=== PATIENT | male | born 1995 | race Caucasian/White ===

== ENCOUNTER 2019-07-18 01:24 | Emergency (ER) | payer SELFPAY ==
--- NOTE | 2019-07-18 02:52 | ED ---
Upper Extremity Pain - HPI Summary HPI Summary: Pt is a 24 y/o M presenting to the ED with a chief complaint of R shoulder pain. He states he believes he dislocated it when he fell down some steps tonight onto the shoulder, as he has a prior dislocation of that shoulder. He reports decreased ROM of shoulder, and EtOH use tonight. He denies any tingling/ numbness to the area or anywhere beyond that. Pt's R-handed. - History of Current Complaint Chief Complaint: EDShoulderClavicleInj Stated Complaint: SHOULDER INJURY PER PT Time Seen by Provider: 07/18/19 02:35 Hx Obtained From: Patient Mechanism Of Injury: Fall From A Standing Position Onset/Duration: Started Hours Ago, Still Present Timing: Constant, Lasting Hours Severity Initially: Moderate Severity Currently: Moderate Pain Location: Shoulder - right Aggravating Factor(s): Movement Alleviating Factor(s): Nothing Associated Signs & Symptoms: Negative: Numbness/Tingling - Allergies/Home Medications Allergies/Adverse Reactions: Allergies Allergy/AdvReac Type Severity Reaction Status Date / Time No Known Allergies Allergy Verified 07/18/19 01:32 PMH/Surg Hx/FS Hx/Imm Hx Previously Healthy: Yes Endocrine/Hematology History: Denies: Hx Diabetes Respiratory History: Reports: Hx Asthma - USES AN INHALER Sensory History: Denies: Hx Contacts or Glasses, Hx Hearing Aid Opthamlomology History: Denies: Hx Contacts or Glasses - Surgical History Surgery Procedure, Year, and Place: LEFT ANKLE X2: 2011, 2012 [facility] Hx Anesthesia Reactions: No Infectious Disease History: No Infectious Disease History: Denies: Traveled Outside the [place] in Last 30 Days - Family History Known Family History: Negative: Diabetes - Social History Alcohol Use: Occasionally Hx Substance Use: Yes Substance Use Type: Reports: Prescribed Hx Tobacco Use: Yes Smoking Status (MU): Light Every Day Tobacco Smoker Review of Systems - ROS Summary Review of Systems Summary: Home Medications Medication Instructions Recorded Confirmed Type Adderall PO DAILY 10/03/12 06/24/15 History Albuterol HFA INHALER* [Ventolin INH Q6HR PRN 10/03/12 06/24/15 History HFA Inhaler*] Ibuprofen TAB* [Motrin TAB*] PO Q6HR PRN 10/03/12 06/24/15 History Fluticasone-Salmeterol 250-50* 1 puff INH 06/24/15 06/24/15 History [Advair Diskus 250-50*] Naproxen 1 tab PO PRN 06/24/15 06/24/15 History Positive: Arthralgia, Decreased ROM Negative: Paresthesia, Numbness All Other Systems Reviewed And Are Negative: Yes Physical Exam - Summary Physical Exam Summary: General: Obese male. Mild discomfort. HEENT: Normocephalic, Atraumatic. Eyes: Conjuctiva normal, PERRL. Oropharynx: Clear, mucous membranes moist, (-) exudates. Neck: Soft, FROM, (-) lymphadenopathy, (-) thyromegaly, (-) JVD. Cardiovascular: Normal sinus rhythm, (-) murmur. Lungs: Clear to auscultation bilaterally (-) wheezes, (-) rales, (-) rhonchi. Abdomen: Soft, non-tender, non-distended, (-) organomegaly, normal bowel sounds. Back: (-) CVA tenderness Extremities: No edema. Anterior shoulder is tender at AC joint. Decreased ROM of R shoulder. Nml strength, sensation intact, pulses, capillary refill intact. Skin: Warm, dry, (-) rash. Neuro: Alert and oriented x3, no focal deficits. Psychiatric: Mood normal, affect normal. Triage Information Reviewed: Yes Vital Signs On Initial Exam: Initial Vitals Temp Pulse Resp BP Pulse Ox 97.5 F 112 16 158/99 93 07/18/19 01:25 07/18/19 01:25 07/18/19 01:25 07/18/19 01:25 07/18/19 01:25 Vital Signs Reviewed: Yes Procedures - Sedation Patient Received Moderate/Deep Sedation with Procedure: No Diagnostics - Vital Signs Vital Signs Temp Pulse Resp BP Pulse Ox 07/18/19 01:25 97.5 F 112 16 158/99 93 - Laboratory Lab Statement: Any lab studies that have been ordered have been reviewed, and results considered in the medical decision making process. - Radiology Shoulder XR Radiology Interpretation Completed By: ED Physician Summary of Radiographic Findings: Acromioclavicular separation. Pending official radiology report. Course/Dx - Course Course Of Treatment: Fell downstairs. Alcohol involved. Tenderness of shoulder. NV intact. XR shows AC joint separation. Placed in sling. Recommended ice & anti -inflammatory. Off work today. - Diagnoses Provider Diagnoses: Acromioclavicular joint separation Discharge ED - Sign-Out/Discharge Documenting (check all that apply): Patient Departure - Discharge Plan Condition: Stable Disposition: HOME Patient Education Materials: Acromioclavicular Separation (ED), How to Use a Sling (ED) Forms: *Work Release Referrals: [facility] [Outside] Allen Worlye MD [Medical Doctor] - Additional Instructions: Please follow up with your primary care physician within three days. Please return to ED for any new or worsening symptoms. - Billing Disposition and Condition Condition: STABLE Disposition: Home - Attestation Statements Document Initiated by Scribe: Yes Documenting Scribe: Yadira Hernandez Provider For Whom Mukesh is Documenting (Include Credential): Ariana Arriaza MD. Scribe Attestation: Yadira Robert, scribed for Ariana Arriaza MD. on 07/18/19 at 0602. Scribe Documentation Reviewed: Yes Provider Attestation: The documentation as recorded by the scribeYadira accurately reflects the service I personally performed and the decisions made by Ariana carlisle MD. Status of Scribe Document: Viewed
[2019-07-18] MEDS ORDERED: Naproxen TAB* 250 MG PO ONE (03:19)
[2019-07-18 03:44] VITALS: BP 141/90
== END 2019-07-18 03:45 | disposition home or self-care (01) ==
LOC: ED 01:24
DX: S43.101A Unspecified dislocation of right acromioclavicular joint, initial encounter (principal); W10.9XXA Fall (on) (from) unspecified stairs and steps, initial encounter; Y92.9 Unspecified place or not applicable; F17.200 Nicotine dependence, unspecified, uncomplicated; Z79.899 Other long term (current) drug therapy
CPT/HCPCS: 99282

== ENCOUNTER 2019-12-03 16:06 | Emergency (ER) | payer SELFPAY ==
[2019-12-03 16:54] VITALS: BP 172/82
== END 2019-12-03 17:11 | disposition home or self-care (01) ==
LOC: UCEAST 16:06

== ENCOUNTER 2021-12-08 15:12 | Inpatient (IN) ==
[2021-12-08 17:37] LABS: ABS Basophils 0.1 10^3/ul (0-0.2); ABS Eosinophils 0.2 10^3/ul (0-0.6); ABS Lymphocytes 1.5 10^3/ul (1.0-4.8); ABS Neutrophils 10.4 10^3/ul (1.5-7.7); Eosinophil % 1.3 %; Hematocrit 50 % (42-52); Hemoglobin 16.7 g/dL (14.0-18.0); Lymphocyte % 11.1 %; Mean Corpuscular HGB Conc 34 g/dL (31-36); Mean Corpuscular Hemoglobin 33 pg (27-31); Mean Corpuscular Volume 99 fL (80-94); Mean Platelet Volume 6.7 fL (7.4-10.4); Nucleated Red Blood Cells % 0.2; Platelet Count 218 10^3/uL (150-450); Red Cell Distribution Width 13 % (10-15); White Blood Count 13.1 10^3/uL (3.5-10.8)
[2021-12-08 18:23] LABS: Albumin 4.3 g/dL (3.2-5.2); Potassium 4.6 mmol/L (3.5-5.0); Total Protein 7.3 g/dL (6.4-8.9); eGFR CKD-EPI 129.5 (>60)
[2021-12-08 18:24] LABS: Albumin/Globulin Ratio 1.4 (1-3); C Reactive Protein 11.89 mg/L (<8.01); Total Bilirubin 0.8 mg/dL (0.2-1.0)
[2021-12-08] MEDS ORDERED: Lactated Ringers 1000 ml BAG 1,000 ML IV ONE (20:01)
[2021-12-08] MEDS ORDERED: Droperidol 5 MG/2 ML 2 ML VIAL IV ONE (20:01)
[2021-12-08] MEDS ORDERED: Iohexol 350 (CONTRAST) 500 ML MDV IV ONE (20:31)
[2021-12-08 20:59] LABS: INR 1.12 (0.86-1.15)
[2021-12-08] MEDS ORDERED: Acyclovir IV 1,000 MG in NS 0.9% 250 ml 250 ML IVPB ONE (21:00)
[2021-12-08] MEDS ORDERED: Ondansetron 4 mg VIAL 2 MG/ML 2 ml VIAL IV PRN (21:18)
[2021-12-08] MEDS ORDERED: Lorazepam PYXIS KEY PRN (21:25)
[2021-12-08] MEDS ORDERED: Lactated Ringers 1000 ml BAG 1,000 ML IV SCH (23:45)
[2021-12-08] MEDS: cefTRIAXone 2 gm/50 mL D5W 2 GM/50 ML BAG IV SCH (23:48)
[2021-12-09] MEDS: Lactated Ringers 1000 ml BAG 1,000 ML IV SCH ×2 (01:08→11:08)
[2021-12-09] MEDS: Acyclovir IV 1,000 MG in NS 0.9% 250 ml 250 ML IVPB SCH ×3 (05:50→21:12)
[2021-12-09 07:07] LABS: ABS Basophils 0.1 10^3/ul (0-0.2); ABS Eosinophils 0.2 10^3/ul (0-0.6); ABS Lymphocytes 1.5 10^3/ul (1.0-4.8); ABS Monocytes 0.8 10^3/ul (0-0.8); ABS Neutrophils 7.8 10^3/ul (1.5-7.7); Eosinophil % 1.5 %; Hematocrit 45 % (42-52); Hemoglobin 15.7 g/dL (14.0-18.0); Lymphocyte % 14.7 %; Mean Corpuscular HGB Conc 35 g/dL (31-36); Mean Corpuscular Hemoglobin 34 pg (27-31); Mean Corpuscular Volume 98 fL (80-94); Mean Platelet Volume 6.8 fL (7.4-10.4); Nucleated Red Blood Cells % 0.2; Platelet Count 186 10^3/uL (150-450); Red Cell Distribution Width 13 % (10-15); White Blood Count 10.3 10^3/uL (3.5-10.8)
[2021-12-09 07:13] LABS: Activated Partial Thrombo Time 37.5 seconds (26.0-38.0); INR 1.08 (0.86-1.15)
[2021-12-09 07:30] LABS: Albumin 3.9 g/dL (3.2-5.2); Albumin/Globulin Ratio 1.4 (1-3); Calcium 9.3 mg/dL (8.6-10.3); Globulin 2.7 g/dL (2-4); Potassium 4.3 mmol/L (3.5-5.0); Total Bilirubin 0.8 mg/dL (0.2-1.0); Total Protein 6.6 g/dL (6.4-8.9); eGFR CKD-EPI 129.5 (>60)
[2021-12-09] MEDS: Mometasone/Formoter 200/5 MDI INH SCH ×2 (07:34→20:38)
[2021-12-09] MEDS: Amphetamine MIXED SALT 10mgTAB PO SCH ×2 (11:06→14:13)
[2021-12-09] MEDS: Nicotine PATCH 7 MG/24 HR PATCH TRANSDERM SCH (11:08)
[2021-12-09] MEDS: cefTRIAXone 2 gm/50 mL D5W 2 GM/50 ML BAG IV SCH ×2 (11:15→20:04)
[2021-12-09 11:18] LABS: Body Fluid Source Cerebral Spinal
[2021-12-09 11:30] LABS: CSF Glucose 52 mg/dL (40-70)
[2021-12-09 11:58] LABS: Body Fluid Appearance Clear; Body Fluid Color Colorless; CSF Tube # 4
[2021-12-09 12:45] LABS: Body Fluid WBC 277 /mcL
[2021-12-09 12:47] LABS: HIV 4th Generation Nonreactive (Nonreactive)
[2021-12-09 12:47] LABS: Body Fluid Mono 10 %; Body Fluid Other Cells 1; Body Fluid Total Cells Counted 200
[2021-12-09] MEDS: Enoxaparin 40 MG/0.4 ML SYR SUBCUT SCH (14:17)
[2021-12-09] MEDS: LORazepam 2 mg VIAL 1 ml IV PUSH PRN (16:13)
[2021-12-09] MEDS ORDERED: Gadoteridol (CONTRAST) 279.3 MG/ML 10 ML IV ONE (18:54)
[2021-12-10] MEDS: LORazepam 2 mg VIAL 1 ml IV PUSH PRN (01:29)
[2021-12-10] MEDS: Acyclovir IV 1,000 MG in NS 0.9% 250 ml 250 ML IVPB SCH ×3 (05:17→21:40)
[2021-12-10 08:53] LABS: ABS Eosinophils 0.2 10^3/ul (0-0.6); ABS Lymphocytes 1.4 10^3/ul (1.0-4.8); ABS Monocytes 0.7 10^3/ul (0-0.8); ABS Neutrophils 5.3 10^3/ul (1.5-7.7); Eosinophil % 2.5 %; Hematocrit 43 % (42-52); Hemoglobin 14.4 g/dL (14.0-18.0); Lymphocyte % 17.9 %; Mean Corpuscular HGB Conc 34 g/dL (31-36); Mean Corpuscular Hemoglobin 34 pg (27-31); Mean Corpuscular Volume 99 fL (80-94); Mean Platelet Volume 6.6 fL (7.4-10.4); Platelet Count 180 10^3/uL (150-450); Red Blood Count 4.29 10^6 /uL (4.18-5.48); Red Cell Distribution Width 12 % (10-15); White Blood Count 7.6 10^3/uL (3.5-10.8)
[2021-12-10] MEDS: Mometasone/Formoter 200/5 MDI INH SCH ×2 (09:03→21:24)
[2021-12-10 10:00] LABS: Albumin 3.9 g/dL (3.2-5.2); Albumin/Globulin Ratio 1.7 (1-3); Calcium 9.4 mg/dL (8.6-10.3); Globulin 2.3 g/dL (2-4); Potassium 4.8 mmol/L (3.5-5.0); Total Bilirubin 0.7 mg/dL (0.2-1.0); Total Protein 6.2 g/dL (6.4-8.9); eGFR CKD-EPI 124.6 (>60)
[2021-12-10] MEDS: cefTRIAXone 2 gm/50 mL D5W 2 GM/50 ML BAG IV SCH (10:07)
[2021-12-10] MEDS: Nicotine PATCH 7 MG/24 HR PATCH TRANSDERM SCH ×2 (10:08→12:00)
[2021-12-10] MEDS: Amphetamine MIXED SALT 10mgTAB PO SCH ×2 (10:08→14:32)
[2021-12-10] MEDS: Enoxaparin 40 MG/0.4 ML SYR SUBCUT SCH (13:23)
[2021-12-11 01:59] LABS: HSV 1 PCR, CSF Negative (Negative); HSV 2 PCR, CSF Negative (Negative)
[2021-12-11] MEDS: Acyclovir IV 1,000 MG in NS 0.9% 250 ml 250 ML IVPB SCH ×3 (04:47→21:24)
[2021-12-11] MEDS: Amphetamine MIXED SALT 10mgTAB PO SCH ×2 (05:05→12:09)
[2021-12-11 05:09] LABS: ABS Basophils 0.1 10^3/ul (0-0.2); ABS Eosinophils 0.2 10^3/ul (0-0.6); ABS Lymphocytes 1.5 10^3/ul (1.0-4.8); ABS Monocytes 0.8 10^3/ul (0-0.8); ABS Neutrophils 5.7 10^3/ul (1.5-7.7); Eosinophil % 2.5 %; Hematocrit 41 % (42-52); Hemoglobin 14.2 g/dL (14.0-18.0); Lymphocyte % 18.3 %; Mean Corpuscular HGB Conc 35 g/dL (31-36); Mean Corpuscular Hemoglobin 34 pg (27-31); Mean Corpuscular Volume 99 fL (80-94); Mean Platelet Volume 6.7 fL (7.4-10.4); Platelet Count 169 10^3/uL (150-450); Red Blood Count 4.17 10^6 /uL (4.18-5.48); Red Cell Distribution Width 12 % (10-15); White Blood Count 8.3 10^3/uL (3.5-10.8)
[2021-12-11 05:37] LABS: Albumin 3.5 g/dL (3.2-5.2); Albumin/Globulin Ratio 1.5 (1-3); Calcium 8.8 mg/dL (8.6-10.3); Globulin 2.4 g/dL (2-4); Potassium 3.8 mmol/L (3.5-5.0); Total Bilirubin 0.7 mg/dL (0.2-1.0); Total Protein 5.9 g/dL (6.4-8.9); eGFR CKD-EPI 126.9 (>60)
[2021-12-11] MEDS: Mometasone/Formoter 200/5 MDI INH SCH ×2 (08:21→20:00)
[2021-12-11] MEDS: Nicotine PATCH 7 MG/24 HR PATCH TRANSDERM SCH (12:04)
[2021-12-11] MEDS: Enoxaparin 40 MG/0.4 ML SYR SUBCUT SCH (12:04)
[2021-12-11 16:40] LABS: CSF VDRL Negative (Negative)
[2021-12-11 21:33] LABS: Varicella Zoster Result Positive (Negative); Varicella Zoster Source CSF
[2021-12-12] MEDS: Albuterol HFA INHALER 8 gm MDI INH PRN (02:34)
[2021-12-12] MEDS: Amphetamine MIXED SALT 10mgTAB PO SCH ×2 (05:03→12:27)
[2021-12-12] MEDS: Acyclovir IV 1,000 MG in NS 0.9% 250 ml 250 ML IVPB SCH ×3 (05:10→21:03)
[2021-12-12 05:31] LABS: ABS Basophils 0.1 10^3/ul (0-0.2); ABS Eosinophils 0.2 10^3/ul (0-0.6); ABS Lymphocytes 1.6 10^3/ul (1.0-4.8); ABS Monocytes 0.7 10^3/ul (0-0.8); Eosinophil % 2.8 %; Hematocrit 40 % (42-52); Hemoglobin 13.7 g/dL (14.0-18.0); Lymphocyte % 21.3 %; Mean Corpuscular HGB Conc 34 g/dL (31-36); Mean Corpuscular Hemoglobin 34 pg (27-31); Mean Corpuscular Volume 100 fL (80-94); Mean Platelet Volume 6.5 fL (7.4-10.4); Platelet Count 167 10^3/uL (150-450); Red Blood Count 4.05 10^6 /uL (4.18-5.48); Red Cell Distribution Width 12 % (10-15); White Blood Count 7.7 10^3/uL (3.5-10.8)
[2021-12-12 06:09] LABS: Albumin 3.5 g/dL (3.2-5.2); Albumin/Globulin Ratio 1.5 (1-3); Calcium 8.9 mg/dL (8.6-10.3); Globulin 2.3 g/dL (2-4); Potassium 4.4 mmol/L (3.5-5.0); Total Bilirubin 0.8 mg/dL (0.2-1.0); Total Protein 5.8 g/dL (6.4-8.9); eGFR CKD-EPI 127.4 (>60)
[2021-12-12] MEDS: Mometasone/Formoter 200/5 MDI INH SCH ×4 (07:42→20:47)
[2021-12-12] MEDS: Enoxaparin 40 MG/0.4 ML SYR SUBCUT SCH (11:38)
[2021-12-12] MEDS: Nicotine PATCH 7 MG/24 HR PATCH TRANSDERM SCH ×2 (11:39→17:25)
[2021-12-12 15:32] LABS: B. garinii/B. afzellii PCR Negative (Negative); Lyme Disease Source CSF
[2021-12-13] MEDS: Acyclovir IV 1,000 MG in NS 0.9% 250 ml 250 ML IVPB SCH ×3 (04:35→22:04)
[2021-12-13 05:37] LABS: Calcium 8.8 mg/dL (8.6-10.3); Potassium 4.2 mmol/L (3.5-5.0); eGFR CKD-EPI 132.9 (>60)
[2021-12-13] MEDS: Amphetamine MIXED SALT 10mgTAB PO SCH ×2 (06:16→13:52)
[2021-12-13] MEDS: Mometasone/Formoter 200/5 MDI INH SCH ×2 (08:07→19:57)
[2021-12-13] MEDS: Nicotine PATCH 7 MG/24 HR PATCH TRANSDERM SCH ×2 (10:45→14:52)
[2021-12-13] MEDS: Enoxaparin 40 MG/0.4 ML SYR SUBCUT SCH (12:09)
[2021-12-13 17:15] LABS: CSF West Nile Virus IgG Ab Negative (Negative); CSF West Nile Virus IgM Ab Negative (Negative)
[2021-12-13] MEDS: Albuterol HFA INHALER 8 gm MDI INH PRN (19:59)
[2021-12-14] MEDS: Acyclovir IV 1,000 MG in NS 0.9% 250 ml 250 ML IVPB SCH ×2 (05:14→12:46)
[2021-12-14] MEDS: Amphetamine MIXED SALT 10mgTAB PO SCH (07:11)
[2021-12-14 07:13] VITALS: BP 156/105
[2021-12-14] MEDS: Nicotine PATCH 7 MG/24 HR PATCH TRANSDERM SCH (07:19)
[2021-12-14] MEDS: Mometasone/Formoter 200/5 MDI INH SCH (07:43)
[2021-12-14] MEDS: Enoxaparin 40 MG/0.4 ML SYR SUBCUT SCH (12:47)
== END 2021-12-14 14:00 | disposition home health service (06) | DRG 720 ==
LOC: ED 15:12 → EDHOLD 21:18 → SUATTDRO 21:18 → MED 12-09 00:38
PROVIDERS: ADMIT Internal Medicine; ATTEND Internal Medicine

== ENCOUNTER 2022-04-14 14:42 | Inpatient (IN) ==
[2022-04-14 15:53] LABS: ABS Basophils 0.1 10^3/ul (0-0.2); ABS Eosinophils 0.1 10^3/ul (0-0.6); ABS Lymphocytes 1.3 10^3/ul (1.0-4.8); ABS Monocytes 0.8 10^3/ul (0-0.8); ABS Neutrophils 10.4 10^3/ul (1.5-7.7); Eosinophil % 0.9 %; Hematocrit 47 % (42-52); Hemoglobin 15.8 g/dL (14.0-18.0); Lymphocyte % 10.5 %; Mean Corpuscular HGB Conc 34 g/dL (31-36); Mean Corpuscular Hemoglobin 33 pg (27-31); Mean Corpuscular Volume 99 fL (80-94); Platelet Count 208 10^3/uL (150-450); Red Blood Count 4.77 10^6 /uL (4.18-5.48); Red Cell Distribution Width 13 % (10-15); White Blood Count 12.7 10^3/uL (3.5-10.8)
[2022-04-14 15:56] LABS: INR 1.03 (0.89-1.11)
[2022-04-14 16:34] LABS: Potassium 4.2 mmol/L (3.5-5.0)
[2022-04-14 16:35] LABS: Albumin 4.4 g/dL (3.2-5.2); Albumin/Globulin Ratio 1.6 (1-3); Calcium 9.7 mg/dL (8.6-10.3); Globulin 2.8 g/dL (2-4); Total Bilirubin 0.8 mg/dL (0.2-1.0); Total Protein 7.2 g/dL (6.4-8.9); eGFR CKD-EPI 133.3 (>60)
[2022-04-14] MEDS ORDERED: Benzocaine/Menthol LOZ PO ONE (16:37)
[2022-04-14] MEDS ORDERED: LORazepam 2 mg VIAL 1 ml IV PUSH ONE ×3 (16:51→18:56)
[2022-04-14] MEDS ORDERED: Lorazepam PYXIS KEY PRN ×3 (16:51→18:56)
[2022-04-14] MEDS ORDERED: Lidocaine 1% MPF 5 ML VIAL INJ ONE (16:51)
[2022-04-14] MEDS ORDERED: Lidocaine 2% PF 5 ML VIAL ONE (16:56)
[2022-04-14] MEDS ORDERED: Iohexol 350 (CONTRAST) 500 ML MDV IV ONE (16:59)
[2022-04-14] MEDS ORDERED: Albuterol 0.5% CONC CONTINUOUS NEB.SOL 5 mg/ml 20 ml BOT INH ONE (18:40)
[2022-04-14] MEDS ORDERED: Albuterol (2.5 MG) 0.5 % CONC 0.5 ML NEB.SOLN INH ONE (18:43)
[2022-04-14] MEDS ORDERED: Albuterol HFA INHALER 8 gm MDI INH PRN (19:43)
[2022-04-14 20:06] LABS: C Reactive Protein 25.79 mg/L (<8.01)
[2022-04-14] MEDS ORDERED: Piperacillin/Tazobac ADVAN 3.375 GM in NS 0.9% 100 ml BAG 100 ML IV ONE (20:45)
[2022-04-14] MEDS: methylPREDNISolone SOD SUCC 40 mg/ml 1 ml VIAL IV SCH (20:53)
[2022-04-14 21:00] LABS: TSH Ultra Thyroid Stim Horm 3.9 mcIU/mL (0.34-5.60)
[2022-04-14] MEDS ORDERED: Albuterol 2.5mg/3 ml (0.083%) NEB.SOLN INH SCH (21:00)
[2022-04-14] MEDS ORDERED: Zosyn per Pharmacy NOTE FOLLOW UP SCH (21:00)
[2022-04-14] MEDS ORDERED: Piperacillin/Tazobac 3.375 GM BAG ONE (21:49)
[2022-04-14 23:15] LABS: High Sensitivity Troponin 1 Hr 4 pg/mL (<20)
[2022-04-15] MEDS: Albuterol/Ipratropium NEB.SOL (2.5/0.5 MG) 3 ML NEB.SOLN INH PRN ×2 (00:18→06:45)
[2022-04-15] MEDS ORDERED: ZOSYN 3.375 GM Q8H per EXTENDED INFUSION IV SCH (03:30)
[2022-04-15] MEDS: methylPREDNISolone SOD SUCC 40 mg/ml 1 ml VIAL IV SCH ×3 (04:26→20:59)
[2022-04-15 06:08] LABS: ABS Lymphocytes 0.6 10^3/ul (1.0-4.8); ABS Monocytes 0.2 10^3/ul (0-0.8); ABS Neutrophils 12.3 10^3/ul (1.5-7.7); Hematocrit 44 % (42-52); Hemoglobin 15.1 g/dL (14.0-18.0); Lymphocyte % 4.3 %; Mean Corpuscular HGB Conc 34 g/dL (31-36); Mean Corpuscular Hemoglobin 34 pg (27-31); Mean Corpuscular Volume 98 fL (80-94); Mean Platelet Volume 6.8 fL (7.4-10.4); Platelet Count 206 10^3/uL (150-450); Red Blood Count 4.48 10^6 /uL (4.18-5.48); Red Cell Distribution Width 13 % (10-15); White Blood Count 13.1 10^3/uL (3.5-10.8)
[2022-04-15 06:52] LABS: Calcium 9.5 mg/dL (8.6-10.3); Potassium 4.8 mmol/L (3.5-5.0); eGFR CKD-EPI 130.9 (>60)
[2022-04-15] MEDS ORDERED: Benzocaine/Menthol LOZ PO PRN (07:08)
[2022-04-15] MEDS: Mometasone/Formoter 200/5 MDI INH SCH ×2 (09:19→21:05)
[2022-04-15] MEDS: Albuterol/Ipratropium NEB.SOL (2.5/0.5 MG) 3 ML NEB.SOLN INH SCH ×5 (10:05→23:16)
[2022-04-15 10:13] LABS: PCO2 Arterial 49 mmHg (35-45); PO2 Arterial 70 mmHg (80-100)
[2022-04-15] MEDS: Enoxaparin 40 MG/0.4 ML SYR SUBCUT SCH (11:09)
[2022-04-15] MEDS ORDERED: Magnesium Sulfate 2 gm BAG 2 GM/50 ML BAG IVPB ONE (11:12)
[2022-04-15] MEDS ORDERED: Perflutren Lipid Microsphere 3 ML VIAL ONE (15:45)
[2022-04-16] MEDS: Albuterol/Ipratropium NEB.SOL (2.5/0.5 MG) 3 ML NEB.SOLN INH SCH ×4 (03:32→15:32)
[2022-04-16] MEDS: methylPREDNISolone SOD SUCC 40 mg/ml 1 ml VIAL IV SCH ×2 (05:17→12:08)
[2022-04-16 06:44] LABS: ABS Lymphocytes 0.8 10^3/ul (1.0-4.8); ABS Monocytes 0.5 10^3/ul (0-0.8); ABS Neutrophils 16.6 10^3/ul (1.5-7.7); Hematocrit 44 % (42-52); Hemoglobin 15.1 g/dL (14.0-18.0); Lymphocyte % 4.5 %; Mean Corpuscular HGB Conc 35 g/dL (31-36); Mean Corpuscular Hemoglobin 35 pg (27-31); Mean Corpuscular Volume 101 fL (80-94); Mean Platelet Volume 6.9 fL (7.4-10.4); Platelet Count 208 10^3/uL (150-450); Red Blood Count 4.35 10^6 /uL (4.18-5.48); Red Cell Distribution Width 13 % (10-15); White Blood Count 17.9 10^3/uL (3.5-10.8)
[2022-04-16 06:57] LABS: Calcium 9.5 mg/dL (8.6-10.3); Magnesium 2.3 mg/dL (1.9-2.7); eGFR CKD-EPI 130.9 (>60)
[2022-04-16 07:06] LABS: Potassium 5.1 mmol/L (3.5-5.0)
[2022-04-16] MEDS: Mometasone/Formoter 200/5 MDI INH SCH (07:18)
[2022-04-16] MEDS: Enoxaparin 40 MG/0.4 ML SYR SUBCUT SCH (09:58)
[2022-04-16 12:03] VITALS: BP 129/94
== END 2022-04-16 16:00 | disposition home or self-care (01) | DRG 141 ==
LOC: ED 14:42 → EDHOLD 20:19 → SUATTDRO 20:19 → MEDTELE 04-15 11:22
PROVIDERS: ADMIT Internal Medicine; ATTEND Internal Medicine